=== PATIENT | female | born 1940 | race Caucasian/White ===

== ENCOUNTER 2017-07-31 08:14 | Day surgery (SDC) | payer MEDICARE ==
[~2017-07-31] VITALS: Ht 162.6 cm; Wt 70.0 kg
[~2017-07-31 08:14] MED LIST: ADV100 IH; FLUT16H NASAL; LISI-660 PO; PRED20 PO
[2017-07-31] MEDS ORDERED: HYALURONATE SOD/CHONDROITIN SOD 0.5 ML VIAL IO ONE (08:15)
[2017-07-31] MEDS ORDERED: LIDOCAINE HCL/PF 1% 2 ML VIAL INJ ONE (08:15)
[2017-07-31] MEDS ORDERED: HYALURONATE SODIUM 12 MG/ML 0.8 ML SYRINGE IO ONE (08:15)
[2017-07-31] MEDS ORDERED: TETRACAINE HCL VISCOUS 0.5% 5 ML OPHTHALMIC SOLUTION OS ONE (08:15)
[2017-07-31] MEDS ORDERED: MIDAZOLAM HCL 2 MG/2 ML VIAL IVP ONE (08:15)
[2017-07-31] MEDS ORDERED: POVIDONE-IODINE 10% 15 ML SOLUTION UD TP ONE (08:15)
[2017-07-31] MEDS ORDERED: FentaNYL CITRATE-PF 100 MCG/2 ML VIAL IVP ONE (08:15)
[2017-07-31] MEDS ORDERED: DEXAMETHASONE SOD PHOS 4 MG/ML VIAL IVP ONE (08:15)
[2017-07-31] MEDS ORDERED: DICLOFENAC SODIUM 0.1% 2.5 ML OPHTHALMIC SOLUTION ONE (08:22)
[2017-07-31] MEDS ORDERED: RINGERS SOLUTION,LACTATED 500 ML IV ONE ×2 (08:22→08:45)
[2017-07-31] MEDS ORDERED: PHENYLEPHRINE HCL 2.5% 2 ML OPHTHALMIC SOLUTION ONE (08:22)
[2017-07-31] MEDS ORDERED: TROPICAMIDE 1% 2 ML OPHTHALMIC SOLUTION ONE (08:22)
[2017-07-31] MEDS ORDERED: MOXIFLOXACIN HCL 0.5% 3 ML OPHTHALMIC SOLUTION ONE (08:22)
[2017-07-31] MEDS ORDERED: MOXIFLOXACIN HCL 0.5% 3 ML OPHTHALMIC SOLUTION OS ONE (08:30)
[2017-07-31] MEDS ORDERED: FLUT16H NASAL (08:50)
[2017-07-31] MEDS ORDERED: ADV500 IH (08:50)
[2017-07-31] MEDS: TROPICAMIDE 1% 2 ML OPHTHALMIC SOLUTION OS SCH ×2 (08:53→08:59)
[2017-07-31] MEDS: PHENYLEPHRINE HCL 2.5% 2 ML OPHTHALMIC SOLUTION OS SCH ×2 (08:53→09:00)
== END 2017-07-31 12:05 | disposition home or self-care (01) ==
LOC: SURGERY 08:14 → EDBD 11:45 → SURGERY 12:05
PROVIDERS: ATTEND Specialist
DX: H25.012 Cortical age-related cataract, left eye (principal); I10 Essential (primary) hypertension; J45.909 Unspecified asthma, uncomplicated; C50.912 Malignant neoplasm of unspecified site of left female breast; Z88.8 Allergy status to other drugs, medicaments and biological substances; Z98.890 Other specified postprocedural states; Z86.2 Personal history of diseases of the blood and blood-forming organs and certain disorders involving the immune mechanism
CPT/HCPCS: 93005; J1100; J2250; J3010; J3490; J7120

== ENCOUNTER 2017-10-16 09:22 | Day surgery (SDC) | payer MEDICARE ==
[~2017-10-16] VITALS: Ht 162.6 cm; Wt 71.4 kg
[~2017-10-16 09:22] MED LIST changes: -ADV100 IH; +ADV500 IH; +MOXIFLOXACIN HCL 0.5% 3 ML OPHTHALMIC SOLUTION ONE; +PHENYLEPHRINE HCL 2.5% 2 ML OPHTHALMIC SOLUTION ONE; +RINGERS SOLUTION,LACTATED 500 ML IV ONE; +TROPICAMIDE 1% 2 ML OPHTHALMIC SOLUTION ONE
[2017-10-16] MEDS ORDERED: HYALURONATE SOD/CHONDROITIN SOD 0.5 ML VIAL IO ONE (09:23)
[2017-10-16] MEDS ORDERED: HYALURONATE SODIUM 12 MG/ML 0.8 ML SYRINGE IO ONE (09:23)
[2017-10-16] MEDS ORDERED: ACETYLCHOLINE CHLORIDE 1 EA INTRAOCULAR SOLUTION KIT IO ONE (09:23)
[2017-10-16] MEDS ORDERED: TETRACAINE HCL VISCOUS 0.5% 5 ML OPHTHALMIC SOLUTION OD ONE (09:23)
[2017-10-16] MEDS ORDERED: DEXAMETHASONE SOD PHOS 4 MG/ML VIAL IVP ONE (09:23)
[2017-10-16] MEDS ORDERED: LIDOCAINE HCL/PF 1% 2 ML VIAL INJ ONE (09:23)
[2017-10-16] MEDS ORDERED: POVIDONE-IODINE 10% 15 ML SOLUTION UD TP ONE (09:23)
[2017-10-16] MEDS ORDERED: RINGERS SOLUTION,LACTATED 500 ML IV ONE (10:00)
[2017-10-16] MEDS ORDERED: 0.9% SODIUM CHLORIDE 10 ML SYRINGE IVP PRN (10:00)
[2017-10-16] MEDS ORDERED: MOXIFLOXACIN HCL 0.5% 3 ML OPHTHALMIC SOLUTION OD ONE (10:00)
[2017-10-16] MEDS: PHENYLEPHRINE HCL 2.5% 2 ML OPHTHALMIC SOLUTION OD SCH ×2 (10:13→10:20)
[2017-10-16] MEDS: TROPICAMIDE 1% 2 ML OPHTHALMIC SOLUTION OD SCH ×2 (10:13→10:20)
[2017-10-16] MEDS ORDERED: AcetaZOLAMIDE 250 MG TABLET PO ONE (11:45)
[2017-10-16] MEDS ORDERED: AcetaZOLAMIDE 250 MG TABLET ONE (11:52)
[2017-10-16] MEDS ORDERED: MIDAZOLAM HCL 2 MG/2 ML VIAL IVP ONE (12:00)
[2017-10-16] MEDS ORDERED: FentaNYL CITRATE-PF 100 MCG/2 ML VIAL IVP ONE (12:00)
== END 2017-10-16 12:35 | disposition home or self-care (01) ==
LOC: SURGERY 09:22
PROVIDERS: ATTEND Specialist
DX: H25.011 Cortical age-related cataract, right eye (principal); I10 Essential (primary) hypertension; J45.909 Unspecified asthma, uncomplicated; Z85.3 Personal history of malignant neoplasm of breast; Z90.49 Acquired absence of other specified parts of digestive tract; Z98.42 Cataract extraction status, left eye; Z88.6 Allergy status to analgesic agent
CPT/HCPCS: 66982; C1780; J1100; J2250; J3010; J3490 ×2; J7120